=== PATIENT | male | born 1985 | race Two or more races ===

== ENCOUNTER → 2018-09-30 | Emergency (ER) | payer OTHER ==
[~2018-09-30] VITALS: Ht 172.7 cm; Wt 115.9 kg
[2018-09-30 23:15] VITALS: BP 150/112
== END | disposition home or self-care (01) ==
LOC: ER 21:51
DX: Z77.21 Contact with and (suspected) exposure to potentially hazardous body fluids (principal)
CPT/HCPCS: 99281